=== PATIENT | male | born 1950 | race Caucasian/White ===

== ENCOUNTER 2023-11-18 06:26 | Day surgery (SDC) | payer OTHER, SELFPAY ==
[2023-11-07 07:10] VITALS: BMI 22.6
[2023-11-07 09:11] LABS: Hematocrit 40.5 % (39.0-52.0); Hemoglobin 13.8 g/dL (13.0-18.0); Mean Corp Hgb Conc. 34.1 g/dL (33.0-37.0); Mean Corpuscular Hgb 30.5 pg (27.0-31.0); Mean Corpuscular Volume 89.4 fL (80.0-94.0); Mean Platelet Volume 10.1 fL (7.4-10.4); Platelet Count 218 10^3/uL (130-400); Red Blood Cell Count 4.53 10^6/uL (4.70-6.10); Red Cell Dist. Width 14.4 % (11.5-14.5); White Blood Cell Count 4.4 10^3/uL (4.8-10.8)
[2023-11-07 09:28] LABS: Blood Urea Nitrogen 25 mg/dl (9-20); Calcium 9.4 mg/dl (8.4-10.2); Carbon Dioxide 26 mmol/L (22-30); Chloride 103 mmol/L (98-107); Estimated Creatinine Clearance 71 ml/min; Glucose 101 mg/dl (70-99); Potassium 4.3 mmol/L (3.5-5.1); Sodium 139 mmol/L (135-145); eGFR > 60.00
--- NOTE | 2023-11-08 15:23 | PTCARENOTE ---
Abnormal preop ECG from 11/07/23 was reviewed by and his request for a note regarding his current cardiac status has dawna conveyed to both Anu and Luna at 's office.
[2023-11-18] VITALS (9 sets, daily range): BP systolic 122–150; BP diastolic 58–91; BMI 22.6
--- NOTE | 2023-11-18 07:25 | HP.FOC2 ---
Focused History & Physical
Chief Complaint
HPI:
Chief Complaint: Recurrent umbilical hernia
HPI / Indication for Planned Procedure: Patient is a 73-year-old male who was previously undergone multiple umbilical hernia repairs. First was primary suture repair March 2004. Subsequent recurrent umbilical herniorrhaphy with mesh in 2006
repaired with circular dual mesh with strap 4.3 cm round. He then underwent repair of a second recurrence in 2019 with a second mesh, Ventralex 4.3 cm round repair and previously placed mesh was left in place. Patient recently seen in outpatient
surgical evaluation after over the past couple years he has noticed a recurrent swelling along the upper right and left aspects of his previous repair that have slowly increased in size.
Recently seen in outpatient surgical evaluation confirming presence of recurrent hernia particularly noted on the superior aspects of previous repair.
Relevant Past Medical History: Other (Patient denies any pertinent or significant active medical history other than environmental/seasonal allergies)
Relevant Social History: Negative
Relevant Family History: Negative
Relevant Past Surgical History: Positive for (Tonsils, umbilical hernia repair x 3, cataracts)
Review of Systems
Review of Pertinent Systems: All Systems Negative
Medication
See Medication form for detailed medications: Yes
Medication List (including Herbals & OTC):
acetaminophen 325 mg tablet (Tylenol) 650 mg PO Q4H PRN discomfort 11/12/23
cetirizine 10 mg tablet (Zyrtec) 10 mg PO DAILY PRN allergies 11/12/23
Medications Reviewed: Yes
Allergies and Reactions
Patient has Allergies: Yes
Noted Allergies and Reactions:
Allergy/AdvReac Type Severity Reaction Status Date / Time
No Known Drug Allergies Allergy NA Verified 11/12/23 12:39
pollen extracts Allergy hayfever Verified 11/12/23 12:39
Pertinent Physical Exam
All Other Systems: Negative
Head/Neck: Normal
Lungs: Normal
Heart: Normal
Abdomen: Other (Vertical midline scar superior to umbilical stump and inferior. Soft mobile partially reducible incisional hernia along superior aspect of previous repairs.)
Extremities: Normal
Neurological: Normal
Diagnosis / Assessment
73-year-old male presenting for scheduled operative correction multiply recurrent umbilical hernia and likely removal of previously placed mesh
Plan / Procedure
Robotic assisted laparoscopic repair of recurrent umbilical hernia with mesh; removal of old hernia mesh
Anesthesia/Sedation to be done by Anesthesia Provider: Yes
[2023-11-18] MEDS: NORMOSOL-R/PLASMALYTE-A 1000 IV (11:12)
[2023-11-18] MEDS: TYLENOL 1000 MG PO (11:19)
--- NOTE | 2023-11-18 12:16 | W.SUR.PREOP ---
Pre-Operative Surgical Note
-
I have examined this patient prior to the performance of the scheduled procedure.
The patient's condition is unchanged from the time of the current History and
Physical and the patient is able to undergo the scheduled procedure.
--- NOTE | 2023-11-18 15:16 | W.IMMPOSTOP ---
Addendum entered and electronically signed by Ryan Wilson MD 11/18/23 15:46:
#[id number]
Original Note:
Surgical Immed Post Op Note
-
Primary Surgeon: Katie
Assisting Surgeon: Liza Palencia Pa-c
Pre-op Diagnosis: Recurrent UH
Post-op Diagnosis: Recurrent UH
Procedure Performed: RAL removal old hernia mesh
RAL repair recurrent UH with mesh; 3.5cm, ventralight ST 15cm x 10cm - IPUM+
Anesthesia Type: GETA + 0.25% Marcaine w/ epi
Specimen / Cultures: none
Estimated Blood Loss: 8mL
Complications: none immediate
Operative Findings: Moderate omental adhesions to old hernia mesh and around recurrent hernias. Lysis did not significantly increase operative time. Incorportated Composix and VentrioST mesh each removed. Recurrent UH - 3 fascial defects along
superior/lateral areas of prior mesh repair; maximal length together 3.5cm. Fascial closure with 0 PDS Strattafix and underlay intraperitoneal mesh repair with Ventralight ST [id number] oriented vertically and secured with 2-0 PDS strattafix x 3
The assistance of Liza Palencia PA-C was required due to the complexity of the procedure. During the procedure Liza Palencia PA-C assisted with port placement, robotic instrumentation and suture material exchanges, and closure of the surgical incision
sites. I was present for the entirety of the operative procedure.
[2023-11-18] MEDS: DILAUDID 0.25 MG IV (15:39)
== END 2023-11-18 17:05 | disposition home or self-care (01) ==
LOC: SDS 06:26
PROVIDERS: ATTENDING PHYSICIAN Surgery; FAMILY PHYSICIAN Physician Assistant Medical
DX: K42.9 Umbilical hernia without obstruction or gangrene (principal)
CPT/HCPCS: 49615; 49623; 36415; 80048; 85027; 93005; C1713

== ENCOUNTER 2024-11-30 06:05 | Day surgery (SDC) | payer OTHER, SELFPAY ==
[2024-11-18 09:07] LABS: Hematocrit 40.8 % (39.0-52.0); Hemoglobin 13.6 g/dL (13.0-18.0); Mean Corp Hgb Conc. 33.3 g/dL (33.0-37.0); Mean Corpuscular Volume 88.1 fL (80.0-94.0); Platelet Count 228 10^3/uL (130-400); Red Cell Dist. Width 14.6 % (11.5-14.5)
[2024-11-18 10:16] LABS: Blood Urea Nitrogen 21 mg/dl (9-20); Calcium 9.3 mg/dl (8.4-10.2); Carbon Dioxide 29 mmol/L (22-30); Chloride 103 mmol/L (98-107); Glucose 88 mg/dl (70-99); Potassium 4.6 mmol/L (3.5-5.1); Sodium 138 mmol/L (135-145); eGFR > 60.00
[2024-11-18 13:57] VITALS: BMI 23.1
[2024-11-30] VITALS (9 sets, daily range): BP systolic 125–139; BP diastolic 64–81; BMI 23.1
[2024-11-30] MEDS: TYLENOL 1000 MG PO (10:21)
[2024-11-30] MEDS: CELEBREX 200 MG PO (10:21)
[2024-11-30] MEDS: NORMOSOL-R/PLASMALYTE-A 1000 IV (10:38)
== END 2024-11-30 17:50 | disposition home or self-care (01) ==
LOC: SDS 06:05
PROVIDERS: ATTENDING PHYSICIAN Student in an Organized Health Care Education/Training Program; FAMILY PHYSICIAN Family Medicine
DX: M20.11 Hallux valgus (acquired), right foot (principal); M20.41 Other hammer toe(s) (acquired), right foot; M24.574 Contracture, right foot
CPT/HCPCS: 28750; 28285 ×4; 28114; 36415; 80048; 85027; 97163; C1713; C1776

== ENCOUNTER 2025-02-03 06:15 | Day surgery (SDC) | payer OTHER, SELFPAY ==
[2025-01-29 08:34] LABS: ALT (SGPT) 41 U/L (0-50); AST (SGOT) 38 U/L (17-59); Albumin 4.4 g/dl (3.5-5.0); Alkaline Phosphatase 58 U/L (38-126); Blood Urea Nitrogen 24 mg/dl (9-20); Calcium 9.3 mg/dl (8.4-10.2); Carbon Dioxide 28 mmol/L (22-30); Chloride 103 mmol/L (98-107); Glucose 100 mg/dl (70-99); Potassium 4.2 mmol/L (3.5-5.1); Sodium 135 mmol/L (135-145); Total Protein 7.6 g/dl (6.3-8.2); eGFR > 60.00
[2025-02-03 11:09] VITALS: BMI 21.1
[2025-02-03 11:10] VITALS: BP 143/83; BMI 21.1
[2025-02-03] MEDS: NORMOSOL-R/PLASMALYTE-A 1000 IV (11:26)
[2025-02-03] MEDS: CELEBREX 200 MG PO (11:26)
[2025-02-03] MEDS: TYLENOL 1000 MG PO (11:26)
[2025-02-03 14:15] VITALS: BP 123/50; BP 143/83
[2025-02-03 14:40] VITALS: BP 127/63
[2025-02-03 15:00] VITALS: BP 134/71
[2025-02-03 15:30] VITALS: BP 128/71
--- NOTE | 2025-02-04 22:07 | OR.RPT ---
Operative Report
Operative Report
Operative Report
Patient: Poncho Estrada

Date of Surgery: 02/03/2025
Surgeon: Philip Galeano
Assistants: Philip Titus
Preoperative Diagnosis:
Symptomatic retained hardware, right 5th toe
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
Painful dystrophic right 5th toenail
Postoperative Diagnosis:
Same as above
Procedures Performed:
Right 5th toe hardware removal (CPT 84364)
Right 5th toenail avulsion (CPT 63325)
Right 3rd metatarsal head resection (CPT 05392)
Anesthesia:
General anesthesia with local block of 20ccs of 0.5% bupivacaine plain
Hemostasis:
Ankle tourniquet placed at 250mmHg for the entirety of the procedure
Estimated Blood Loss:
Minimal
Specimens:
Right 5th toe screw sent to pathology
Culture obtained from the screw/hardware site
Implants:
None
Complications:
None
Indications for Surgery:
The patient is a 74 year old male who previously underwent a right forefoot reconstruction on 11/30/[address] Mendez. He initially recovered well, but over the past several months the screw placed in the right 5th toe had backed out, causing a
small wound over the dorsal toe. Additionally, the patient experienced recurrence of his right 3rd hammertoe deformity with symptomatic plantar pressure under the 3rd metatarsal head. Conservative measures failed, and surgical management was
indicated. Benefits, risks, and alternatives of surgical management were thoroughly reviewed and patient consented to the procedure.
Procedure in Detail:
The patient was brought to the operating room and placed supine on the operating table. A well-padded tourniquet was applied to the right ankle. Following administration of local anesthesia and appropriate sedation, the right foot was prepped and
draped in sterile fashion.
1. Right 5th Toenail Avulsion (87105)
Due to a painful nail associated with the wound and hardware irritation, the right 5th toenail was addressed. A freer elevator was used to gently separate the nail plate from the nail bed. The nail was removed in total. The underlying nail bed
appeared healthy with no purulence. Hemostasis was obtained with gentle pressure
2. Right 5th Toe Hardware Removal ()
Attention was directed to the dorsal aspect of the right 5th toe, where the previously placed screw had migrated dorsally, creating a small overlying wound. The wound edges were debrided back to healthy tissue. A small incision was made to expose
the hardware. The screw was identified, grasped, and removed in its entirety. The screw was sent for pathologic evaluation, and a culture was obtained from the hardware site.
The area was irrigated with copious sterile saline. There were no remaining hardware fragments. The soft tissues were reapproximated, and the wound was closed using a single 3-0 nylon suture.
3. Right 3rd Metatarsal Head Resection (32117)
A longitudinal dorsal incision was made over the 3rd metatarsophalangeal joint. Dissection was carried down through the extensor tendon interval. The joint capsule was incised, exposing the metatarsal head. The metatarsal head demonstrated
degenerative changes with plantar prominence contributing to the patient�s symptoms.
Using a sagittal saw, the 3rd metatarsal head was resected in standard fashion. The remaining bone edges were smoothed with a rasp. The toe achieved an improved anatomical alignment without residual contracture.
The wound was copiously irrigated, the capsule was repaired using 2-0 monocryl and subcutaneous tissues were closed woith 3-0 monocryl. The skin was closed with nylon sutures in standard fashion.
Sterile dressings were applied to all operative sites. A postoperative shoe was placed. The patient was instructed to remain heel weightbearing on the right foot and to keep the dressing clean, dry, and intact.
He will follow up in the office in 10�14 days for wound evaluation and suture removal. Culture and pathology findings will be followed and he will remain on Augmentin in the meantime.
== END 2025-02-03 15:40 | disposition home or self-care (01) ==
LOC: SDS 06:15
PROVIDERS: ATTENDING PHYSICIAN Student in an Organized Health Care Education/Training Program; FAMILY PHYSICIAN Family Medicine
DX: M77.41 Metatarsalgia, right foot (principal); M20.41 Other hammer toe(s) (acquired), right foot; M79.674 Pain in right toe(s)
CPT/HCPCS: 28112; 20680; 11730; 36415; 73630; 76000; 80053; 87070; 87075; 87147; 87205; 88300